=== PATIENT | male | born 1985 | race Caucasian/White ===

== ENCOUNTER 2024-04-06 23:12 | Emergency (ER) | payer OTHER, SELFPAY ==
[2024-04-06 23:13] VITALS: BP 157/97; PULSE 96; RESP 20; TEMP 37.6; O2SAT 96; BMI 39.2
[2024-04-06 23:30] VITALS: BP 144/91; PULSE 88; RESP 18; O2SAT 96
--- NOTE | 2024-04-06 23:30 | HMH.EDGENADL ---
Discharge Plan Disposition Patient Disposition: Home, Self-Care Condition: Good Prescriptions Prescriptions: No Action No Known Home Medications Referrals Follow up/Referrals: Provider,Referral, [Primary Care Provider] - See instructions Activity Restrictions/Add. Instructions Additional Instructions/Restrictions: You were evaluated in the emergency department today. At this time, I feel that your symptoms are likely related to a viral upper respiratory infection. You may take up to 1000 mg of Tylenol every 4-6 hours as needed for pain and fever. Do not exceed 4000 mg in a 24-hour period. You may also take 600 to 800 mg of ibuprofen every 4-6 hours as needed for pain and fever. Do not exceed 3000 100 mg in a 24-hour period. Follow-up closely with your primary care provider for reassessment. Return to the emergency department for new or worsening symptoms, such as fevers persisting beyond 7 days, difficulty breathing, altered mental status, or other concerns. Clinical Impressions Clinical Impression: Fever, Viral URI with cough Stand Alone Forms Stand Alone Forms: Work/School Release Instructions Patient Instructions: DI for Viral Upper Respiratory Infection -- Adult, DI for Fever (Symptom) -- Adult Discharge ED Provider: Jayne Hagan General Adult HPI General Chief complaint: Fever Stated complaint: 106 fever Time Seen by Provider: 04/06/24 23:21 Mode of Arrival: Ambulatory Source of Information: Patient Limitations: No Limitations Description of Symptoms (Recalled from ER Triage Doc. by RN): 39 M presents from home with c/o flu like symptoms. Patient reports 2-3 days ago he developed a fever with the highest temporal being 106. Patient has been taking Dayquil with minimal relief. 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 He reports more relief with this medication. History of Present Illness HPI narrative: This patient is a 39-year-old otherwise healthy male presenting to the emergency department for evaluation with concern for fevers, body aches, chills, sore throat, cough, and congestion that started approximate 4 days ago, but the fevers have been persistent for the last 48 hours. His cough is productive. He notes that he is trying to take Tylenol and ibuprofen at home but continues to have fever, which is what prompted him to come in today. He states he is taking combination Tylenol/ibuprofen pill. He has been taking DayQuil/NyQuil prior to that with no improvement. Family called from home to verify the dosage, and the tablets contain 250 mg of Tylenol and 125 mg of ibuprofen. He states that he did get some relief with this medication, and upon arrival his temperature is less than 100 ?F, which he states is the first time this has happened over the last 48 hours. He denies any other concerns, denies abdominal pain, nausea, vomiting, change in bowel movements, or urinary symptoms. No rashes, wounds, or swelling. Related Data Home Medications Medication Instructions Recorded Confirmed No Known Home Medications 04/06/24 04/06/24 Allergies Allergy/AdvReac Type Severity Reaction Status Date / Time No Known Allergies Allergy Verified 04/06/24 23:25 [facility] Disclaimer: The information contained in this section may have been updated after the patient was seen, as this information can be updated by other users. Medical History No significant past medical history Surgical History No history of previous surgery Family History Other No significant family history Social History Smoking Status: Light tobacco smoker alcohol intake: current current occupational status: employed Travel in the last 8 weeks: None ROS Obtained: Yes All systems reviewed & no additional complaints except as documented Physical Exam General General appearance: alert and in no apparent distress Head Head exam: atraumatic and normocephalic Eye Eye exam: Present normal appearance, PERRL and EOMI ENT ENT exam: Present normal exam, normal oropharynx, mucous membranes moist and normal external ear exam Neck Neck exam: Present normal inspection, full ROM and trachea midline; Absent tenderness Chest Chest inspection: Present normal inspection and symmetric chest wall rise; Absent tenderness Respiratory Respiratory exam: Present normal lung sounds bilaterally; Absent respiratory distress, wheezes, stridor or accessory muscle use Cardiovascular Cardiovascular exam: Present regular rate and normal rhythm Abdominal Exam Abdominal exam: Present soft; Absent distention, tenderness or guarding Extremities Exam Extremities exam: Present normal inspection, full ROM and normal capillary refill; Absent tenderness or edema Back Exam Back exam: Present normal inspection and full ROM; Absent tenderness Neurological Exam Neurological exam: Present alert, oriented X3, CN II-XII intact and normal gait; Absent motor sensory deficit Psychiatric Psychiatric exam: Present normal affect and normal mood Skin Skin exam: Present warm and diaphoresis Medical Decision Making Medical Records Medical records reviewed: Yes I reviewed the patient's medical records. Rob Inquiry Pt receiving controlled substance: No Vital Signs: 04/06/24 23:13 04/06/24 23:24 04/06/24 23:30 Temperature 99.7 F H Temperature Source Oral Tympanic Pulse Rate 88 Pulse Rate [Left] 96 H Respiratory Rate 20 18 Blood Pressure 144/91 H Blood Pressure [Right Arm] 157/97 H Blood Pressure Mean 109 Blood Pressure Mean [Right Arm] 117 Blood Pressure Source [Right Arm] Automatic Cuff Blood Pressure Position [Right Arm] Sitting 02 Sat by Pulse Oximetry 96 96 Oxygen Delivery Method Room Air Room Air Lab Data Lab results reviewed: Yes I reviewed the patient's lab results. Orders (Tests/Meds): ED MEDICATIONS Discontinued Medications Generic Name Dose Route Start Last Admin Trade Name Freq PRN Reason Stop Dose Admin Acetaminophen 500 mg 04/06/24 23:30 04/06/24 23:35 Acetaminophen 500mg Tab PO 04/06/24 23:31 500 mg ONCE ONE Administration Ibuprofen 400 mg 04/06/24 23:30 04/06/24 23:34 Ibuprofen 400 Mg Tablet PO 04/06/24 23:31 400 mg ONCE ONE Administration Medical Decision Narrative: In summary, this patient is a 39-year-old man presenting to the Emergency Department for evaluation of fevers, body aches, chills, cough, congestion, and sore throat. Differential diagnoses considered include but are not limited to viral syndrome, pneumonia, bronchitis, sinusitis, pharyngitis, dehydration. Ruling out the most morbid conditions drove assessment. On exam, the patient is diaphoretic but otherwise nontoxic-appearing. Cardiopulmonary exam is reassuring with no rhonchi or increased work of breathing. Vitals are reassuring at this time with no significant tachycardia or fever right now after receiving Tylenol and ibuprofen at home, though significantly underdosed. I feel the patient is likely having persistent fevers because he is underdosing Tylenol and ibuprofen, only taking low-dose combo pills. No evidence of bacterial infection on clinical exam. 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 I also considered obtaining chest x-ray given the patient's cough, however he has no evidence of pneumonia clinically with clear lungs to auscultation. Symptoms of also only been going on about 4 days. I feel he likely has a viral upper respiratory infection with fever at this time. Patient was given 500 mg of Tylenol and 400 mg of ibuprofen to add to the low-dose that he had already taken at home. At this time, he is deemed to be appropriate for discharge home with continued supportive management of viral upper respiratory infection with fever. Instructions for supportive management, strict return precautions, and instructions for close follow-up were given. Critical Care Critical Care Time Critical Care Time: No
[2024-04-06] MEDS: IBUPROFEN 400 MG TABLET PO (23:34)
[2024-04-06] MEDS: ACETAMINOPHEN 500MG TAB 500 MG PO (23:35)
[2024-04-06 23:50] VITALS: BP 145/89; PULSE 91; RESP 19; TEMP 37.6; O2SAT 96
== END 2024-04-06 23:49 | disposition home or self-care (01) ==
PROVIDERS: Emergency Provider Emergency Medicine
DX: R50.9 Fever, unspecified (principal); R05.9 Cough, unspecified; J06.9 Acute upper respiratory infection, unspecified; B34.9 Viral infection, unspecified
CPT/HCPCS: 99283

== ENCOUNTER 2024-08-30 21:45 | Emergency (ER) | payer OTHER, SELFPAY ==
[2024-08-30 21:47] VITALS: BP 167/103; PULSE 79; RESP 22; TEMP 36.8; O2SAT 98; BMI 37.3
[2024-08-30 22:00] VITALS: BP 167/103; PULSE 92; O2SAT 96
--- NOTE | 2024-08-30 22:11 | CT_ITS ---
PROCEDURE INFORMATION: Exam: CT Chest With Contrast; Diagnostic Exam date and time: 08/30/2024 10:53 PM Age: 39 years old Clinical indication: Other: Hematemesis; Additional info: Foreceful vomiting and hematemesis TECHNIQUE: Imaging protocol: Diagnostic computed tomography of the chest with contrast. Radiation optimization: All CT scans at this facility use at least one of these dose optimization techniques: automated exposure control; mA and/or kV adjustment per patient size (includes targeted exams where dose is matched to clinical indication); or iterative reconstruction. Contrast material: ISOVUE 370; Contrast volume: 75 ml; Contrast route: IV; COMPARISON: CT ABDOMEN PELVIS W CON 08/30/2024 10:53 PM FINDINGS: Lungs: No acute airspace disease identified. Pleural spaces: No pleural effusion or pneumothorax documented. Heart: Unremarkable. No cardiomegaly. No pericardial effusion. Lymph nodes: Unremarkable. No enlarged lymph nodes. Vasculature: Unremarkable. No aortic aneurysm. Bones/joints: Unremarkable. No acute fracture. Soft tissues: Unremarkable. IMPRESSION: No visible acute intrathoracic abnormality.
--- NOTE | 2024-08-30 22:11 | CT_ITS ---
PROCEDURE INFORMATION: Exam: CT Abdomen And Pelvis With Contrast Exam date and time: 08/30/2024 10:53 PM Age: 39 years old Clinical indication: Vomiting and other: Hematemesis; Additional info: Foreceful vomiting and hematemesis TECHNIQUE: Imaging protocol: Computed tomography of the abdomen and pelvis with contrast. Radiation optimization: All CT scans at this facility use at least one of these dose optimization techniques: automated exposure control; mA and/or kV adjustment per patient size (includes targeted exams where dose is matched to clinical indication); or iterative reconstruction. Contrast material: ISOVUE 370; Contrast volume: 75 ml; Contrast route: IV; COMPARISON: CT CHEST W CON 08/30/2024 10:53 PM FINDINGS: Liver: Diffuse decreased CT attenuation throughout the liver. Gallbladder and biliary ducts: Normal. No calcified stones. No ductal dilation. Pancreas: Normal. No ductal dilation. Spleen: Normal. No splenomegaly. Adrenal glands: Normal. No mass. Kidneys and ureters: Left UPJ calculus measures 4 mm. Moderate left hydronephrosis. Delayed excretion left kidney. Multiple low-density simple cysts of the right kidney. Stomach and bowel: Unremarkable. No obstruction. No mucosal thickening. Appendix: Normal appendix Intraperitoneal space: No free fluid Vasculature: Unremarkable. No abdominal aortic aneurysm. Lymph nodes: Unremarkable. No enlarged lymph nodes. Urinary bladder: Unremarkable as visualized. Reproductive: Unremarkable as visualized. Bones/joints: Unremarkable. No acute fracture. Soft tissues: Unremarkable. IMPRESSION: Moderate left hydronephrosis caused by 4 mm left UPJ calculus. COMMENTS: Consistent with the [employer]'s Incidental Findings Committee white paper (J Am Cristina Radiol 2018): Any incidental renal lesion less than 1 cm or classified as too small to characterize, or any incidental cystic renal lesion characterized as simple-appearing, is likely benign. No follow-up imaging is recommended for these lesions per consensus recommendations based on imaging criteria.
[2024-08-30] MEDS: SODIUM CHLORIDE 0.9% 10ML VIAL 10 ML IV (22:26)
[2024-08-30] MEDS: 0.9 % SODIUM CHLORIDE 1000ML 1,000 ML 999 ML IV (22:26)
[2024-08-30] MEDS: ONDANSETRON 4MG/2ML VIAL 4 MG IV (22:26)
[2024-08-30] MEDS: PANTOPRAZOLE 40MG VIAL 40 MG IV (22:26)
[2024-08-30] MEDS: MORPHINE 4MG/ML SYRINGE 4 MG IV (22:26)
[2024-08-30] MEDS: KETOROLAC 30MG/ML VIAL 15 MG IV (22:26)
[2024-08-30 22:28] LABS: Basophils % 0.5 % (0.1-2.0); Eosinophils # 0.1 K/mm3 (0.0-0.4); Eosinophils % 1.3 % (0.1-12.0); Hematocrit 44.7 % (42.0-52.0); Hemoglobin 15.1 g/dL (14.1-18.0); Lymphocytes # 1.8 K/mm3 (0.7-4.5); Lymphocytes % 24.1 % (10-50); Mean Corpuscular HGB Conc 33.8 g/dL (31.8-35.4); Mean Corpuscular Hemoglobin 31.4 pg (27.0-31.2); Mean Corpuscular Volume 92.8 fl (80-94); Mean Platelet Volume 7.1 fl (7.4-10.4); Monocytes # 0.3 K/mm3 (0.1-1.0); Monocytes % 4.3 % (1.7-9.3); Neutrophils # 5.2 K/mm3 (1.8-7.8); Neutrophils % 69.9 % (37.0-80.0); Platelet Count 255 K/mm3 (142-424); Red Blood Count 4.81 M/mm3 (4.60-6.20); Red Cell Distribution Width 13.2 % (11.5-17.5); White Blood Count 7.5 K/mm3 (4.8-10.8)
[2024-08-30 22:30] VITALS: BP 142/100; PULSE 63; O2SAT 98
[2024-08-30 22:33] LABS: Activated Partial Thrombo Time 26.8 seconds (22.8-30.6); Prothrombin Time 11.2 seconds (10.1-12.5)
[2024-08-30 22:35] LABS: Albumin Level 4.8 g/dl (3.5-5.0); Chloride 103 mmol/L (98-107); Potassium 3.5 mmoL/L (3.5-5.1); Sodium 139 mmol/L (136-145)
[2024-08-30 22:37] LABS: Alanine Aminotransferase 143 U/L (12-78); Aspartate Amino Transferase 92 U/L (17-59); Blood Urea Nitrogen 20 mg/dl (9-20); Creatinine Clearance Estimated 138 mL/min (50-200); Estimated Glomerular Filt Rate 67 ml/min (>60); GFR (African American) 82 ML/MIN (>60)
[2024-08-30 22:38] LABS: Albumin/Globulin Ratio 1.6 (1.1-1.8); Alkaline Phosphatase 43 U/L (38-126); Anion Gap 16.5 mEq/L (5-15); Bilirubin,Total 0.6 mg/dl (0.2-1.3); Calcium 9.5 mg/dl (8.4-10.2); Carbon Dioxide 23 mmol/L (22.0-30.0); Glucose 160 mg/dl (74-100); Lipase 89 U/L (23-300); Total Protein,Serum 7.8 g/dl (6.3-8.2)
[2024-08-30 22:41] LABS: Lactic Acid 2.5 mmol/L (0.7-2.1)
--- NOTE | 2024-08-30 22:51 | ED_ITS ---
Discharge Plan Disposition Patient Disposition: Home, Self-Care Prescriptions Prescriptions: New ondansetron HCl 4 mg tablet 4 mg PO Q8H PRN (Reason: nausea and vomiting) 5 Days Qty: 30 0RF tamsulosin 0.4 mg capsule 0.4 mg PO DAILY Qty: 30 0RF oxycodone 5 mg tablet 5 mg PO Q8H PRN (Reason: pain) Qty: 12 0RF Referrals Follow up/Referrals: Marito Osman MD [Staff Physician] - See instructions Provider,MD Saray [Primary Care Provider] - See instructions Activity Restrictions/Add. Instructions Additional Instructions/Restrictions: Please follow-up with your primary care provider. Please follow-up with urology. Please take tamsulosin daily. Please take Tylenol and ibuprofen as needed for pain. Please take oxycodone as needed for severe pain. Please take Zofran as needed for nausea and vomiting. Please return to the emergency department if you develop any new or worsening symptoms or become concerned for your health. Clinical Impressions Clinical Impression: Hydronephrosis with ureteral calculus Instructions Patient Instructions: DI for Kidney Stones, DI for Hydronephrosis-Adult Print Language Print Language: Polish Discharge ED Provider: Eugenio Power General Adult HPI <Kar Gardner MD - Last Filed: 08/30/24 22:57> General Chief complaint: PAIN Stated complaint: Vomiting blood,kidney pain Time Seen by Provider: 08/30/24 22:04 Mode of Arrival: Family Vehicle Source of Information: Patient and Spouse Limitations: No Limitations Description of Symptoms (Recalled from ER Triage Doc. by RN): Pt c/o nausea, vomiting, L upper ABD/L flank/L mid back pain after eating at [employer]. States he was eating at 1800 tonight and approx 45 min later became ill and forcefully vomited. States he is having bright red blood in his spit and emesis. Denies an previous abd surgies or significant PMH. Pt did take activated charchol [employer]PER[employer] as he felt this would omproved his n/v. History of Present Illness HPI narrative: Please note that above description of symptoms, in this electronic medical record under categorization of recalled from ER triage doctor by RN are reflective of an initial nursing assessment, however, is not reflective of my full history and physical exam that was personally taken and clarified. Consequentially, this preceding description of symptoms, which may include the patient's categorized chief complaint in the EMR, do not reflect my personal clinical impression, and the ultimate description of history of present illness and patient stated complaints should be deferred to this section of the note. Unless stated otherwise or congruent with this section of the note, additional signs, symptoms, or incongruence should be interpreted as inaccurate with my clinical impression. Related Data Previous Rx's ?Medication ?Instructions ?Recorded ondansetron HCl 4 mg tablet 4 mg PO Q8H PRN nausea and 08/31/24 vomiting 5 days #30 tabs oxycodone 5 mg tablet 5 mg PO Q8H PRN pain #12 tabs 08/31/24 tamsulosin 0.4 mg capsule 0.4 mg PO DAILY #30 caps 08/31/24 Allergies Allergy/AdvReac Type Severity Reaction Status Date / Time No Known Allergies Allergy Verified 04/06/24 23:25 [facility] <Kar Gardner MD - Last Filed: 08/30/24 22:57> [facility] Disclaimer: The information contained in this section may have been updated after the patient was seen, as this information can be updated by other users. Medical History No significant past medical history Surgical History No history of previous surgery Family History Other No significant family history Social History Smoking Status: Unknown if ever smoked alcohol intake: current current occupational status: employed Travel in the last 8 weeks: None Other Medical History Have you received the Flu Vaccine for this season: No Have you received the Pneumonia Vaccine: No <Kar Gardner MD - Last Filed: 08/30/24 22:57> ROS Obtained: Yes All systems reviewed & no additional complaints except as documented Physical Exam <Kar Gardner MD - Last Filed: 08/30/24 22:57> General General appearance: alert and in distress (Secondary to pain) Head Head exam: atraumatic and normocephalic Eye Eye exam: Present normal appearance, PERRL and EOMI Neck Neck exam: Present normal inspection, full ROM and trachea midline Respiratory Respiratory exam: Absent respiratory distress, wheezes, stridor, accessory muscle use or prolonged expiratory phase Cardiovascular Cardiovascular exam: Present regular rate, normal rhythm and other (Pulses equal symmetric in upper and lower extremities) Abdominal Exam Abdominal exam: Present soft, distention and tenderness; Absent guarding, rebound, rigidity or pulsatile mass Abdominal tenderness: Present LUQ, LLQ and moderate Extremities Exam Extremities exam: Absent edema Back Exam Back exam: Present CVA tenderness (L) (With associated induration and paraspinal tenderness); Absent CVA tenderness (R) Neurological Exam Neurological exam: Present alert, oriented X3 and CN II-XII intact; Absent motor sensory deficit Skin Skin exam: Present warm, diaphoresis and pallor; Absent erythema Medical Decision Making <Kar Gardner MD - Last Filed: 08/30/24 22:57> Medical Records Medical records reviewed: Yes I reviewed the patient's medical records. Screening: Per USPSTF and CDC recommendations, given the prevalence of disease in our region, it is our hospital?s policy to screen for HIV and viral Hepatitis for all patients aged 18 and over and those with ongoing risk factors. Rob Inquiry Pt receiving controlled substance: No Rob was queried for this patient: No Vital Signs: 08/30/24 21:47 08/30/24 22:00 08/30/24 22:30 Temperature 98.2 F Temperature Source Oral Pulse Rate 92 H 63 Pulse Rate [Right] 79 Respiratory Rate 22 Blood Pressure 167/103 H 142/100 H Blood Pressure [Right Arm] 167/103 H Blood Pressure Mean [Right Arm] 124 Blood Pressure Source Blood Pressure Source [Right Arm] Automatic Cuff 02 Sat by Pulse Oximetry 98 96 98 Oxygen Delivery Method Room Air 08/30/24 23:35 08/31/24 00:00 08/31/24 00:30 Temperature Temperature Source Pulse Rate 70 66 80 Pulse Rate [Right] Respiratory Rate Blood Pressure 154/101 H 144/94 H 141/103 H Blood Pressure [Right Arm] Blood Pressure Mean [Right Arm] Blood Pressure Source Blood Pressure Source [Right Arm] 02 Sat by Pulse Oximetry 99 96 98 Oxygen Delivery Method 08/31/24 01:00 08/31/24 01:30 08/31/24 02:00 Temperature Temperature Source Pulse Rate 73 69 65 Pulse Rate [Right] Respiratory Rate Blood Pressure 140/80 125/87 130/82 Blood Pressure [Right Arm] Blood Pressure Mean [Right Arm] Blood Pressure Source Blood Pressure Source [Right Arm] 02 Sat by Pulse Oximetry 96 95 95 Oxygen Delivery Method 08/31/24 02:28 Temperature 98.2 F Temperature Source Oral Pulse Rate 69 Pulse Rate [Right] Respiratory Rate 17 Blood Pressure 130/82 Blood Pressure [Right Arm] Blood Pressure Mean [Right Arm] Blood Pressure Source Automatic Cuff Blood Pressure Source [Right Arm] 02 Sat by Pulse Oximetry Oxygen Delivery Method Room Air Lab Data Lab Results 08/30/24 22:06: WBC 7.5, RBC 4.81, Hgb 15.1, Hct 44.7, MCV 92.8, MCH 31.4 H, MCHC 33.8, RDW 13.2, Plt Count 255, MPV 7.1 L, Neut % (Auto) 69.9, Lymph % (Auto) 24.1, [place] % (Auto) 4.3, Eos % (Auto) 1.3, Baso % (Auto) 0.5, Neut # (Auto) 5.2, Lymph # (Auto) 1.8, [place] # (Auto) 0.3, Eos # (Auto) 0.1, Baso # (Auto) 0.0, PT 11.2, INR 1.00, APTT 26.8, Sodium 139, Potassium 3.5, Chloride 103, Carbon Dioxide 23, Anion Gap 16.5 H, BUN 20, Creatinine 1.20, Estimated Creat Clear 138, Estimated GFR 67, Est GFR ( Amer) 82, Glucose 160 H, L actate 2.5 H, Calcium 9.5, Total Bilirubin 0.6, AST 92 H, ALT 143 H, Alkaline Phosphatase 43, Total Protein 7.8, Albumin 4.8, Globulin 3.0, Albumin/Globulin Ratio 1.6, Lipase 89, HIV 1&2 Antibody Rapid Nonreactive 08/30/24 23:34: Urine Color Yellow, Urine Appearance Sl cloudy, Urine pH 7.0, Ur Specific [place] 1.015, Urine Protein Negative, Urine Glucose (UA) Negative, Urine Ketones Negative, Urine Blood 3+ A, Urine Nitrate Negative, Urine Bilirubin Negative, Urine Urobilinogen 0.2, Ur Leukocyte Esterase Negative, Urine RBC 50-100, Urine WBC Occasional, Urine Bacteria 1+ 08/31/24 00:32: Urine Color Yellow, Urine Appearance Clear, Urine pH 7.0, Ur Specific [place] 1.010, Urine Protein Negative, Urine Glucose (UA) Negative, Urine Ketones Negative, Urine Blood 2+ A, Urine Nitrate Negative, Urine Bilirubin Negative, Urine Urobilinogen 0.2, Ur Leukocyte Esterase Negative, Urine RBC 5-10, Urine WBC Occasional, Ur Squamous Epith Cells Occasional, Urine Bacteria Trace 08/30/24 22:06 08/30/24 22:06 Orders (Tests/Meds): ED MEDICATIONS Discontinued Medications Generic Name Dose Route Start Last Admin Trade Name Freq PRN Reason Stop Dose Admin Sodium Chloride 1,000 mls @ 999 mls/hr 08/30/24 22:11 08/30/24 22:26 Sod Chlor 0.9% 1000ml Bag IV 08/30/24 23:11 999 mls/hr .Q1H1M ONE Administration Iopamidol 75 ml 08/30/24 22:55 08/30/24 22:56 Iopamidol-370 (76%);100ml Bottle IV 08/30/24 22:56 75 ml ONCE ONE Administration Ketorolac Tromethamine 15 mg 08/30/24 22:11 08/30/24 22:26 Ketorolac 30mg/Ml Vial IV 08/30/24 22:12 15 mg ONCE ONE Administration Morphine Sulfate 4 mg 08/30/24 22:15 08/30/24 22:26 Morphine 4mg/Ml Syringe IV 08/30/24 22:16 4 mg ONCE ONE Administration Ondansetron HCl 4 mg 08/30/24 22:11 08/30/24 22:26 Ondansetron 4mg/2ml Vial IV 08/30/24 22:12 4 mg ONCE ONE Administration Pantoprazole Sodium 40 mg 08/30/24 22:11 08/30/24 22:26 Pantoprazole 40mg Vial IV 08/30/24 22:12 40 mg ONCE ONE Administration Sodium Chloride 10 ml 08/30/24 22:11 08/30/24 22:26 Sodium Chloride 0.9% 10ml Vial IV 09/29/24 22:10 10 ml NEEDED PRN Administration dilute protonix Sodium Chloride 10 ml 08/30/24 22:55 08/30/24 22:56 Sodium Chloride 0.9% 10ml Syr (Rad Only) IV 08/30/24 22:56 10 ml ONCE ONE Administration Tamsulosin HCl 0.4 mg 08/31/24 02:30 08/31/24 02:35 Tamsulosin 0.4mg Capsule PO 08/31/24 02:31 0.4 mg ONCE ONE Administration ORDERS Category Date Time Status CT abdomen pelvis w con Stat Cat Scan 08/30/24 22:[address] chest w con Stat Cat Scan 08/30/24 22:11 Completed Complete Blood Count Auto Diff Stat Lab 08/30/24 22:06 Completed Comprehensive Metabolic Panel Stat Lab 08/30/24 22:06 Completed HIV (1&2) Antibody Rapid Stat Lab 08/30/24 22:06 Completed Hep C Ab with Reflex to RNA Stat Lab 08/30/24 22:06 Received Lactic Acid Stat Lab 08/30/24 22:06 Completed Lipase Stat Lab 08/30/24 22:06 Completed PT INR [Prothrombin Time INR] Stat Lab 08/30/24 22:06 Completed PTT [Activated Partial Thrombo Time] Stat Lab 08/30/24 22:06 Completed UA [Urinalysis and Microscopic] Stat Lab 08/30/24 23:34 Completed UA [Urinalysis and Microscopic] Stat Lab 08/31/24 00:32 Completed Medical Decision Narrative: This is a 39-year-old male otherwise healthy presenting with vomiting and abdominal/flank pain. This started just before arrival. He states that he went to a [employer] restaurant and was eating food. His entire family ate the same food that he ate. About 45 minutes after work, started feeling unwell. Had left upper quadrant/left lower quadrant pain. Started having forceful vomiting. Unable to control vomiting, so tried taking activated charcoal. This did not help. Patient continued vomiting. Thinks he saw some blood in the vomit. Pain is now no longer in his abdomen, but primarily in his left flank causing significant pain. No diarrhea, constipation, syncope, chest pain, shortness of breath, or any other concerns. Has never had pain like this. History obtained with patient and . On arrival, patient appears to be in moderate distress secondary to pain. Not retching, but holding his left flank. Abdomen is soft, but distended and tenderness left upper quadrant/left lower quadrant. Moderately tender. No rebound, rigidity, or guarding. Patient's left flank is indurated, tense, significantly tender in the left flank. No right flank tenderness. Ambulatory, no neurologic deficits. No midline spinal tenderness. Lungs are clear to auscultation, normal cardiac sounds, no evidence of crepitus. Differential includes gastritis, enteritis, PUD, hollow viscus perforation, pancreatitis, nephrolithiasis, esophageal rupture, pneumothorax, among others. Patient was given Toradol, morphine, Zofran, Protonix, fluid bolus. Labs and imaging ordered. Independent interpretation of labs demonstrate no leukocytosis. Patient's coags normal. Chemistry nonactionable. Lactate elevated at 2.5. Mild elevations in AST and ALT 92 and 143 respectively. Normal alkaline phosphatase and bilirubin. Lipase negative. Imaging pending at time of handoff to oncoming physician. Applications Programmer Analyst disclaimer Much of this encounter note is an electronic cath lab manager spoken language to printed text. Electronic cath lab manager of the spoken language may permit errors. Although I have reviewed the note, some errors may still exist. <Eugenio Power MD - Last Filed: 08/31/24 04:12> Vital Signs: 08/30/24 21:47 08/30/24 22:00 08/30/24 22:30 Temperature 98.2 F Temperature Source Oral Pulse Rate 92 H 63 Pulse Rate [Right] 79 Respiratory Rate 22 Blood Pressure 167/103 H 142/100 H Blood Pressure [Right Arm] 167/103 H Blood Pressure Mean [Right Arm] 124 Blood Pressure Source Blood Pressure Source [Right Arm] Automatic Cuff 02 Sat by Pulse Oximetry 98 96 98 Oxygen Delivery Method Room Air 08/30/24 23:35 08/31/24 00:00 08/31/24 00:30 Temperature Temperature Source Pulse Rate 70 66 80 Pulse Rate [Right] Respiratory Rate Blood Pressure 154/101 H 144/94 H 141/103 H Blood Pressure [Right Arm] Blood Pressure Mean [Right Arm] Blood Pressure Source Blood Pressure Source [Right Arm] 02 Sat by Pulse Oximetry 99 96 98 Oxygen Delivery Method 08/31/24 01:00 08/31/24 01:30 08/31/24 02:00 Temperature Temperature Source Pulse Rate 73 69 65 Pulse Rate [Right] Respiratory Rate Blood Pressure 140/80 125/87 130/82 Blood Pressure [Right Arm] Blood Pressure Mean [Right Arm] Blood Pressure Source Blood Pressure Source [Right Arm] 02 Sat by Pulse Oximetry 96 95 95 Oxygen Delivery Method 08/31/24 02:28 Temperature 98.2 F Temperature Source Oral Pulse Rate 69 Pulse Rate [Right] Respiratory Rate 17 Blood Pressure 130/82 Blood Pressure [Right Arm] Blood Pressure Mean [Right Arm] Blood Pressure Source Automatic Cuff Blood Pressure Source [Right Arm] 02 Sat by Pulse Oximetry Oxygen Delivery Method Room Air Lab Data Lab Results 08/30/24 22:06: WBC 7.5, RBC 4.81, Hgb 15.1, Hct 44.7, MCV 92.8, MCH 31.4 H, MCHC 33.8, RDW 13.2, Plt Count 255, MPV 7.1 L, Neut % (Auto) 69.9, Lymph % (Auto) 24.1, [place] % (Auto) 4.3, Eos % (Auto) 1.3, Baso % (Auto) 0.5, Neut # (Auto) 5.2, Lymph # (Auto) 1.8, [place] # (Auto) 0.3, Eos # (Auto) 0.1, Baso # (Auto) 0.0, PT 11.2, INR 1.00, APTT 26.8, Sodium 139, Potassium 3.5, Chloride 103, Carbon Dioxide 23, Anion Gap 16.5 H, BUN 20, Creatinine 1.20, Estimated Creat Clear 138, Estimated GFR 67, Est GFR ( Amer) 82, Glucose 160 H, L actate 2.5 H, Calcium 9.5, Total Bilirubin 0.6, AST 92 H, ALT 143 H, Alkaline Phosphatase 43, Total Protein 7.8, Albumin 4.8, Globulin 3.0, Albumin/Globulin Ratio 1.6, Lipase 89, HIV 1&2 Antibody Rapid Nonreactive 08/30/24 23:34: Urine Color Yellow, Urine Appearance Sl cloudy, Urine pH 7.0, Ur Specific [place] 1.015, Urine Protein Negative, Urine Glucose (UA) Negative, Urine Ketones Negative, Urine Blood 3+ A, Urine Nitrate Negative, Urine Bilirubin Negative, Urine Urobilinogen 0.2, Ur Leukocyte Esterase Negative, Urine RBC 50-100, Urine WBC Occasional, Urine Bacteria 1+ 08/31/24 00:32: Urine Color Yellow, Urine Appearance Clear, Urine pH 7.0, Ur Specific [place] 1.010, Urine Protein Negative, Urine Glucose (UA) Negative, Urine Ketones Negative, Urine Blood 2+ A, Urine Nitrate Negative, Urine Bilirubin Negative, Urine Urobilinogen 0.2, Ur Leukocyte Esterase Negative, Urine RBC 5-10, Urine WBC Occasional, Ur Squamous Epith Cells Occasional, Urine Bacteria Trace Orders (Tests/Meds): ED MEDICATIONS Discontinued Medications Generic Name Dose Route Start Last Admin Trade Name Freq PRN Reason Stop Dose Admin Sodium Chloride 1,000 mls @ 999 mls/hr 08/30/24 22:11 08/30/24 22:26 Sod Chlor 0.9% 1000ml Bag IV 08/30/24 23:11 999 mls/hr .Q1H1M ONE Administration Iopamidol 75 ml 08/30/24 22:55 08/30/24 22:56 Iopamidol-370 (76%);100ml Bottle IV 08/30/24 22:56 75 ml ONCE ONE Administration Ketorolac Tromethamine 15 mg 08/30/24 22:11 08/30/24 22:26 Ketorolac 30mg/Ml Vial IV 08/30/24 22:12 15 mg ONCE ONE Administration Morphine Sulfate 4 mg 08/30/24 22:15 08/30/24 22:26 Morphine 4mg/Ml Syringe IV 08/30/24 22:16 4 mg ONCE ONE Administration Ondansetron HCl 4 mg 08/30/24 22:11 08/30/24 22:26 Ondansetron 4mg/2ml Vial IV 08/30/24 22:12 4 mg ONCE ONE Administration Pantoprazole Sodium 40 mg 08/30/24 22:11 08/30/24 22:26 Pantoprazole 40mg Vial IV 08/30/24 22:12 40 mg ONCE ONE Administration Sodium Chloride 10 ml 08/30/24 22:11 08/30/24 22:26 Sodium Chloride 0.9% 10ml Vial IV 09/29/24 22:10 10 ml NEEDED PRN Administration dilute protonix Sodium Chloride 10 ml 08/30/24 22:55 08/30/24 22:56 Sodium Chloride 0.9% 10ml Syr (Rad Only) IV 08/30/24 22:56 10 ml ONCE ONE Administration Tamsulosin HCl 0.4 mg 08/31/24 02:30 08/31/24 02:35 Tamsulosin 0.4mg Capsule PO 08/31/24 02:31 0.4 mg ONCE ONE Administration ORDERS Category Date Time Status CT abdomen pelvis w con Stat Cat Scan 08/30/24 22:[address] chest w con Stat Cat Scan 08/30/24 22:11 Completed Complete Blood Count Auto Diff Stat Lab 08/30/24 22:06 Completed Comprehensive Metabolic Panel Stat Lab 08/30/24 22:06 Completed HIV (1&2) Antibody Rapid Stat Lab 08/30/24 22:06 Completed Hep C Ab with Reflex to RNA Stat Lab 08/30/24 22:06 Received Lactic Acid Stat Lab 08/30/24 22:06 Completed Lipase Stat Lab 08/30/24 22:06 Completed PT INR [Prothrombin Time INR] Stat Lab 08/30/24 22:06 Completed PTT [Activated Partial Thrombo Time] Stat Lab 08/30/24 22:06 Completed UA [Urinalysis and Microscopic] Stat Lab 08/30/24 23:34 Completed UA [Urinalysis and Microscopic] Stat Lab 08/31/24 00:32 Completed Medical Decision Narrative: This is a 39-year-old male otherwise healthy presenting with vomiting and abdominal/flank pain. This started just before arrival. He states that he went to a [employer] and was eating food. His entire family ate the same food that he ate. About 45 minutes after work, started feeling unwell. Had left upper quadrant/left lower quadrant pain. Started having forceful vomiting. Unable to control vomiting, so tried taking activated charcoal. This did not help. Patient continued vomiting. Thinks he saw some blood in the vomit. Pain is now no longer in his abdomen, but primarily in his left flank causing significant pain. No diarrhea, constipation, syncope, chest pain, shortness of breath, or any other concerns. Has never had pain like this. History obtained with patient and . On arrival, patient appears to be in moderate distress secondary to pain. Not retching, but holding his left flank. Abdomen is soft, but distended and tenderness left upper quadrant/left lower quadrant. Moderately tender. No rebound, rigidity, or guarding. Patient's left flank is indurated, tense, significantly tender in the left flank. No right flank tenderness. Ambulatory, no neurologic deficits. No midline spinal tenderness. Lungs are clear to auscultation, normal cardiac sounds, no evidence of crepitus. Differential includes gastritis, enteritis, PUD, hollow viscus perforation, pancreatitis, nephrolithiasis, esophageal rupture, pneumothorax, among others. Patient was given Toradol, morphine, Zofran, Protonix, fluid bolus. Labs and imaging ordered. Independent interpretation of labs demonstrate no leukocytosis. Patient's coags normal. Chemistry nonactionable. Lactate elevated at 2.5. Mild elevations in AST and ALT 92 and 143 respectively. Normal alkaline phosphatase and bilirubin. Lipase negative. Imaging pending at time of handoff to oncoming physician. Applications Programmer Analyst disclaimer Much of this encounter note is an electronic cath lab manager spoken language to printed text. Electronic cath lab manager of the spoken language may permit errors. Although I have reviewed the note, some errors may still exist. On reassessment patient xenia hemodynamically stable. Pain is stable/improved. CT imaging shows approximately 4 x 4 millimeter obstructing left UPJ stone. Initial urinalysis showed 1+ bacteria and occasional WBCs with many RBCs. Patient denies any history of infection, recent fever or other recent urinary symptoms. I am concerned this could have been a poor catch, a second urinalysis was sent. The second shows only trace bacteria and only occasional WBCs. I do not believe this is consistent with an acutely infected stone. These findings were communicated to patient. He was initiated on tamsulosin and discharged with prescription for oxycodone for pain control, Zofran for nausea as well as tamsulosin. He was encouraged follow-up with urology for trial of passage. He was given strict return precautions including for signs and symptoms of development of urinary tract infection. Critical Care <Kar Gardner MD - Last Filed: 08/30/24 22:57> Critical Care Time Critical Care Time: No
[2024-08-30] MEDS: SODIUM CHLORIDE 0.9% 10ML SYR (RAD ONLY) 10 ML IV (22:56)
[2024-08-30] MEDS: IOPAMIDOL-370 (76%);100ML BOTTLE 75 ML IV (22:56)
[2024-08-30 23:35] VITALS: BP 154/101; PULSE 70; O2SAT 99
[2024-08-30 23:50] LABS: Microscopic, Urine URINE MICROSCOPIC (MICROSCOPIC)
[2024-08-30 23:55] LABS: Appearance,Urine SL CLOUDY (Clear); Bilirubin,Urine Negative (Negative); Blood, Urine 3+ (Negative); Color,Urine YELLOW (Yellow); Glucose,Urine (UA) Negative (Negative); Ketones,Urine Negative (Negative); Leukocyte Esterase,Urine Negative (Negative); Nitrate,Urine Negative (Negative); Protein,Urine Negative (Negative); Specific Gravity, Urine 1.015 (1.005-1.030); Urobilinogen,Urine 0.2 EU/dl (0.2)
[2024-08-31] VITALS: BP 144/94; PULSE 66; O2SAT 96
[2024-08-31 00:14] LABS: WBC,Urine Occasional #/hpf (0-3)
[2024-08-31 00:15] LABS: Bacteria,Urine 1+ /lpf; RBC,Urine 50-100 #/hpf (0-3)
[2024-08-31 00:22] LABS: HIV (1&2) Antibody Rapid NONREACTIVE (NONREACTIVE)
[2024-08-31 00:30] VITALS: BP 141/103; PULSE 80; O2SAT 98
[2024-08-31 00:34] LABS: Microscopic, Urine URINE MICROSCOPIC (MICROSCOPIC)
[2024-08-31 00:36] LABS: Appearance,Urine CLEAR (Clear); Bilirubin,Urine Negative (Negative); Blood, Urine 2+ (Negative); Color,Urine YELLOW (Yellow); Glucose,Urine (UA) Negative (Negative); Ketones,Urine Negative (Negative); Leukocyte Esterase,Urine Negative (Negative); Nitrate,Urine Negative (Negative); Protein,Urine Negative (Negative); Urobilinogen,Urine 0.2 EU/dl (0.2)
[2024-08-31 01:00] VITALS: BP 140/80; PULSE 73; O2SAT 96
[2024-08-31 01:26] LABS: Bacteria,Urine Trace /lpf; Squamous Epithelial Cell,Urine Occasional #/hpf (0-5); WBC,Urine Occasional #/hpf (0-3)
[2024-08-31 01:30] VITALS: BP 125/87; PULSE 69; O2SAT 95
[2024-08-31 02:00] VITALS: BP 130/82; PULSE 65; O2SAT 95
[2024-08-31 02:18] LABS: Reflex Lactic Add Lactic Reflex
[2024-08-31 02:28] VITALS: BP 130/82; PULSE 69; RESP 17; TEMP 36.8; O2SAT 97
[2024-08-31] MEDS: TAMSULOSIN 0.4MG CAPSULE 0.4 MG PO (02:35)
[2024-09-01 08:19] LABS: HCV Ab Non Reactive (Non Reactive)
== END 2024-08-31 02:35 | disposition home or self-care (01) ==
PROVIDERS: Emergency Medicine; Emergency Provider Emergency Medicine
DX: N13.2 Hydronephrosis with renal and ureteral calculous obstruction (principal); K92.0 Hematemesis; R10.12 Left upper quadrant pain; M54.9 Dorsalgia, unspecified
CPT/HCPCS: 71260; 74177; 80053; 81001; 83605; 83690; 85025; 85610; 85730; 86803; 87389; 96361; 96374; 96375; 99285; J1885; J2270; J2405; J7030; Q9967